=== PATIENT | female | born 1990 | race Caucasian/White ===

== ENCOUNTER 2022-01-17 22:10 | Emergency (ER) | payer BC ==
[~2022-01-17] VITALS: Ht 167.6 cm; Wt 132.9 kg
--- NOTE | 2022-01-17 23:28 | NUR ---
BIBSELF C/O LEFT SIDE ABD PAIN RAD TO L FLANK AND RLQ SIDE OF ABD PAST FEW DAYS. NAUSEA + . PT A/OX4. TOLERATING R/A WELL WITH NO SOB. PT AMBULATORY. CONNECTED PT TO POX AND MONITOR.
--- NOTE | 2022-01-17 23:30 | NUR ---
URINE COLLECTED AND SENT TO LAB
--- NOTE | 2022-01-17 23:37 | NUR ---
DR. DAMARIS BAKER AT PT'S BEDSIDE
--- NOTE | 2022-01-17 23:45 | NUR ---
RAC #[id number] S/L; PATENT AND INTACT. BLOOD COLLECTED AND SENT TO LAB
[2022-01-17 23:59] LABS: BASOPHILS # (AUTO) 0.1 K/uL (0.0-0.2); BASOPHILS % (AUTO) 0.5 % (0.0-2.0); EOSINOPHILS % (AUTO) 2.8 % (0.0-6.0); HEMATOCRIT 33 % (33-45); HEMOGLOBIN 11.1 g/dL (11.5-14.8); LYMPHOCYTES # (AUTO) 2.5 K/uL (0.8-4.8); MEAN CORPUSCULAR HGB CONC 34 g/dl (31.0-36.0); MEAN CORPUSCULAR VOLUME 78 fL (82-100); MONOCYTES # (AUTO) 0.7 K/uL (0.1-1.30); MONOCYTES % (AUTO) 7.3 % (2.0-12.0); NEUTROPHILS # (AUTO) 6.4 K/uL (1.8-8.9); NEUTROPHILS % (AUTO) 64.4 % (43.0-81.0); PLATELET COUNT (AUTO) 415 K/uL (150-450); RED BLOOD CELL COUNT(AUTO) 4.27 MIL/uL (4.0-5.2); WHITE BLOOD COUNT (AUTO) 9.9 K/uL (4.3-11.0)
[2022-01-18 00:06] LABS: BILIRUBIN,URINE NEGATIVE (NEGATIVE); COLOR,URINE YELLOW (YELLOW); LEUKOCYTE ESTERASE ,URINE NEGATIVE (NEGATIVE); NITRITE, URINE NEGATIVE (NEGATIVE); PROTEIN,URINE NEGATIVE (NEGATIVE); UGLUCOSE NEGATIVE (NEGATIVE); UROBILINOGEN,URINE 0.2 EU/dL (0.2)
[2022-01-18 00:15] LABS: CALCIUM, SERUM 9.4 mg/dL (8.5-10.1); CREATININE 0.7 mg/dL (0.6-1.3); POTASSIUM 3.9 mmol/L (3.5-5.1)
[2022-01-18 00:21] LABS: ALBUMIN 3.9 g/dL (3.4-5.0); BILIRUBIN,DIRECT 0.1 mg/dL (0.0-0.2); BILIRUBIN,TOTAL 0.4 mg/dL (0.2-1.0); TOTAL PROTEIN, SERUM 8.4 g/dL (6.4-8.2)
--- NOTE | 2022-01-18 02:55 | NUR ---
Patient discharged to home in stable condition. Written and verbal after care instructions given. Patient verbalizes understanding of instruction. IV removed. Catheter intact and site benign. Pressure and 4x4 applied to site. No bleeding noted. PT ambulatory with a steady gait
[2022-01-18 03:04] VITALS: BP 149/81
== END 2022-01-18 03:05 | disposition home or self-care (01) ==
LOC: ER 22:13
DX: R10.9 Unspecified abdominal pain (principal); R11.0 Nausea; Z60.2 Problems related to living alone
CPT/HCPCS: 36415; 80048-TC; 80076-TC; 83690-TC; 84703-TC; 85025-TC; 85730-TC

== ENCOUNTER 2022-06-02 00:01 | Emergency (ER) | payer BC, OTHER ==
[~2022-06-02] VITALS: Ht 170.2 cm; Wt 138.8 kg
--- NOTE | 2022-06-02 00:35 | NUR ---
BIBSELF C/O ABD LEFT SIDE PAIN RAD TO FLANK FOR THE PAST WEEK, FEELS NAUSEOUS AT NIGHT. PLACED COMFORTABLY IN BED. VITALS CHECKED. PATIENT IS AAOX4.
--- NOTE | 2022-06-02 00:47 | NUR ---
URINE SPECIMEN SENT TO LAB
[2022-06-02 01:27] LABS: BASOPHILS % (AUTO) 0.1 % (0.0-2.0); EOSINOPHILS % (AUTO) 0.4 % (0.0-6.0); HEMATOCRIT 33 % (33-45); HEMOGLOBIN 11.1 g/dL (11.5-14.8); LYMPHOCYTES # (AUTO) 0.6 K/uL (0.8-4.8); LYMPHOCYTES % (AUTO) 7.2 % (20.0-44.0); MEAN CORPUSCULAR HGB CONC 33 g/dl (31.0-36.0); MEAN CORPUSCULAR VOLUME 76 fL (82-100); MONOCYTES # (AUTO) 0.5 K/uL (0.1-1.30); MONOCYTES % (AUTO) 5.8 % (2.0-12.0); NEUTROPHILS # (AUTO) 6.8 K/uL (1.8-8.9); NEUTROPHILS % (AUTO) 86.5 % (43.0-81.0); PLATELET COUNT (AUTO) 363 K/uL (150-450); RED BLOOD CELL COUNT(AUTO) 4.36 MIL/uL (4.0-5.2); WHITE BLOOD COUNT (AUTO) 7.9 K/uL (4.3-11.0)
[2022-06-02 01:35] LABS: BILIRUBIN,URINE NEGATIVE (NEGATIVE); COLOR,URINE YELLOW (YELLOW); LEUKOCYTE ESTERASE ,URINE NEGATIVE (NEGATIVE); NITRITE, URINE NEGATIVE (NEGATIVE); PROTEIN,URINE NEGATIVE (NEGATIVE); UGLUCOSE NEGATIVE (NEGATIVE)
[2022-06-02 01:46] LABS: CALCIUM, SERUM 8.8 mg/dL (8.5-10.1); CREATININE 0.8 mg/dL (0.6-1.3)
[2022-06-02 01:53] LABS: ALBUMIN 3.6 g/dL (3.4-5.0); BILIRUBIN,DIRECT 0.2 mg/dL (0.0-0.2); BILIRUBIN,TOTAL 0.8 mg/dL (0.2-1.0); TOTAL PROTEIN, SERUM 7.4 g/dL (6.4-8.2)
--- NOTE | 2022-06-02 01:59 | NUR ---
WHEELED PT TO CT SCAN
[2022-06-02] MEDS ORDERED: IBUP-1955 PO (03:49)
--- NOTE | 2022-06-02 04:04 | NUR ---
Patient discharged to home in stable condition. Written and verbal after care instructions given. Patient verbalizes understanding of instruction.
[2022-06-02 05:03] VITALS: BP 133/71
== END 2022-06-02 04:00 | disposition home or self-care (01) ==
LOC: ER 00:08
DX: R10.32 Left lower quadrant pain (principal); Z60.2 Problems related to living alone
CPT/HCPCS: 36415; 80048-TC; 80076-TC; 83690-TC; 84703-TC; 85025-TC

== ENCOUNTER 2023-07-04 21:25 | Emergency (ER) | payer OTHER ==
[~2023-07-04] VITALS: Ht 170.2 cm; Wt 136.1 kg
[~2023-07-04 21:25] MED LIST: IBUP-1955 PO
[2023-07-04 22:31] LABS: BASOPHILS % (AUTO) 0.3 % (0.0-2.0); EOSINOPHILS # (AUTO) 0.3 K/uL (0.0-0.7); EOSINOPHILS % (AUTO) 2.5 % (0.0-6.0); HEMATOCRIT 35 % (33-45); HEMOGLOBIN 11.7 g/dL (11.5-14.8); LYMPHOCYTES # (AUTO) 2.4 K/uL (0.8-4.8); LYMPHOCYTES % (AUTO) 22.4 % (20.0-44.0); MEAN CORPUSCULAR HEMOGLOBIN 26 PG (26.0-33.0); MEAN CORPUSCULAR HGB CONC 34 g/dl (31.0-36.0); MEAN CORPUSCULAR VOLUME 77 fL (82-100); MONOCYTES # (AUTO) 0.7 K/uL (0.1-1.30); MONOCYTES % (AUTO) 6.2 % (2.0-12.0); NEUTROPHILS # (AUTO) 7.4 K/uL (1.8-8.9); NEUTROPHILS % (AUTO) 68.6 % (43.0-81.0); PLATELET COUNT (AUTO) 413 K/uL (150-450); RED BLOOD CELL COUNT(AUTO) 4.49 MIL/uL (4.0-5.2); RED CELL DISTRIBUTION WIDTH 17.1 % (11.5-15.0); WHITE BLOOD COUNT (AUTO) 10.8 K/uL (4.3-11.0)
[2023-07-04] MEDS ORDERED: IV NS 0.9% 250 ML IV ONE (23:16)
[2023-07-04] MEDS ORDERED: IOHEXOL-300 100 ML VIAL IV ONE (23:16)
[2023-07-04] MEDS ORDERED: CT SWABBABLE VALVE TRANS SET 1 EA INFUS.SET MC ONE (23:16)
[2023-07-05 00:11] LABS: POTASSIUM 4.2 mmol/L (3.5-5.1)
[2023-07-05 00:12] LABS: CALCIUM, SERUM 9.3 mg/dL (8.5-10.1); CREATININE 0.9 mg/dL (0.6-1.3)
[2023-07-05] MEDS ORDERED: CLIN300C12 PO (01:41)
[2023-07-05 01:56] VITALS: BP 130/80; TEMP 99; O2SAT 99
== END 2023-07-05 01:57 | disposition home or self-care (01) ==
LOC: ER 21:25
DX: L03.213 Periorbital cellulitis (principal); H43.393 Other vitreous opacities, bilateral; Z60.2 Problems related to living alone
CPT/HCPCS: 99285; 70450; 85025; 80048; 36415; 70481; J7050; Q9967